=== PATIENT | female | born 1990 | race Caucasian/White ===

== ENCOUNTER 2016-09-28 05:43 | Emergency (ER) | payer MEDICAID ==
[2016-09-28 06:07] VITALS: RESP 16; TEMP 97.5
--- NOTE | 2016-09-28 06:20 | CPEKG ---
Heart Rate: 58 RR Interval: 1034 P-R Interval: 160 QRSD Interval: 96 QT Interval: 484 QTC Interval: 476 P [place]: 34 QRS [place]re: 84 T Wave [place]: 65 EKG Severity - BORDERLINE ECG - EKG Impression: SINUS RHYTHM EKG Impression: BORDERLINE PROLONGED QT INTERVAL Electronically Signed By: Fernando Horowitz 28-Sep-2016 07:29:42
--- NOTE | 2016-09-28 06:39 | EDPHY ---
H & P Stated Complaint: pt c/o L chest pressure and pain radiating into LUE post meth use 2 days ag HPI/ROS: Chief Complaint: Chest pain, anxiety HPI: 25-year-old woman presenting complaining of left upper chest lower shoulder pain and anxiety since about 1:00 a.m.. Patient states she started using meth Klonopin alcohol 2 days ago is been continuing using since then. Last used meth about 3 hours ago. After the using that time she started feeling little bit tired and lethargic. She states she has been having soreness in her left upper chest below her clavicle since 1:00 a.m.. She does have a history of depression but denies being suicidal at this time. She is [place] for safety. No substernal chest pain. No shortness of breath or pleuritic chest pain. She has full by [facility]. No nausea or vomiting. Not hit her head. Does not have a headache. States she is feeling quite anxious and is asking for medication for anxiety. ROS: 10 point Review of Systems is negative except as noted in the HPI. PMH: Depression Medications: Cymbalta Allergies: No known drug allergies Social History: No smoking, occasional heavy alcohol, meth and Klonopin Family History: non-contributory Physical Exam: Gen: Awake, Alert, No Distress HEENT: Nose: no rhinorrhea Eyes: PERRLA, EOMI Mouth: Moist mucosa Neck: Supple, no JVD Chest: nontender, lungs clear to auscultation Heart: S1, S2 normal, no murmur Abd: Soft, non-tender, no guarding Back: no CVA tenderness, no midline tenderness Ext: no edema, non-tender Skin: no rash Neuro: CN II-XII intact, Sensation grossly intact, Strength 5/5 in bilateral upper and lower extremities - Medical/Surgical History Hx Asthma: No Hx Chronic Respiratory Disease: No Hx Diabetes: No Hx Cardiac Disease: No Hx Renal Disease: No Hx Cirrhosis: No Hx Alcoholism: Yes Hx HIV/AIDS: No Hx Splenectomy or Spleen Trauma: No Other PMH: anxiety/depression, ptsd, etoh abuse - Social History Smoking Status: Never smoked Constitutional: Initial Vital Signs Temperature (C) 36.4 C 09/28/16 05:54 Heart Rate 84 09/28/16 05:54 Respiratory Rate 16 09/28/16 05:54 Blood Pressure 152/100 H 09/28/16 05:54 O2 Sat (%) 100 09/28/16 05:54 O2 Delivery Mode Room Air Allergies/Adverse Reactions: No Known Allergies Allergy (Unverified 09/28/16 05:57) Home Medications: Medication Instructions Recorded Samuelsudha 09/28/16 Medical Decision Making - Diagnostics EKG Interpretation: ECG time 6:19 a.m. sinus rhythm with a rate of 58, normal axis, normal intervals , no acute ST or T-wave changes. Impression: Normal ECG. ED Course/Re-evaluation: 25-year-old woman who is been bingeing on alcohol and meth for the last 3 days presenting with some chest pain since 1 o'clock this morning. Her vital signs are normal. Oxygenation is normal. Her ECG is normal. She has no evidence of acute ischemia or arrhythmia. Symptoms are consistent with her substance use and withdrawal. She has no significant alcohol withdrawal symptoms at this time. She is otherwise well-appearing. Will discharge with referral to [facility] for substance abuse treatment. Departure - Departure Disposition: Home, Routine, Self-Care Clinical Impression: Polysubstance abuse Condition: Good Instructions: Polysubstance Abuse (ED) Additional Instructions: Please seek help to decrease your alcohol and substance use. Return to the emergency depart for increasing chest pain, shortness of breath, fevers, chills, or any other concerns. Referrals: Luz Kaur MD [Non Staff Provider ()] - As per Instructions [facility] Detox 24 Hours [Outside] - As per Instructions
[2016-09-28] MEDS ORDERED: diphenhydrAMINE 25 MG CAP PO ONE (07:13)
[2016-09-28 07:21] VITALS: BP 133/82; PULSE 58; O2SAT 97
== END 2016-09-28 07:28 | disposition home or self-care (01) ==
DX: F19.10 Other psychoactive substance abuse, uncomplicated (principal)

== ENCOUNTER 2017-04-22 23:46 | Emergency (ER) | payer MEDICAID ==
[2017-04-22 23:59] VITALS: BP 125/67; PULSE 81; RESP 18; TEMP 98.2; O2SAT 98
--- NOTE | 2017-04-23 00:11 | EDPHY ---
H & P Stated Complaint: Poss UTI, left flank pain HPI/ROS: HPI CHIEF COMPLAINT: "I think I may have a UTI" HISTORY OF PRESENT ILLNESS: This patient very pleasant 18-year-old female she presents emergency room stating that she thinks she may have a urinary tract infection. She reports for the past 4 days she has had some intermittent dysuria. She states very mild 1/10 left flank pain. She denies fever. Denies vomiting. Denies chest pain shortness of breath. Denies abdominal pain. Of note she decided come the emergency room after having symptoms 4 days and she drove her friend here for a separate issue. She decided to check into the emergency room up front when her friend checked in for I separate issue. Past Medical History: Denies significant medical history Past Surgical History: Denies significant surgical history Social History: Denies daily use drugs alcohol tobacco. Family History: Noncontributory ROS REVIEW OF SYSTEMS: A comprehensive 10 point review of systems is otherwise negative aside from elements mentioned in the history of present illness. Exam Constitutional appears well nontoxic no acute distress triage nursing summary reviewed, vital signs reviewed, awake/alert. Eyes normal conjunctivae and sclera, EOMI, PERRLA. HENT normal inspection, atraumatic, moist mucus membranes, no epistaxis, neck supple/ no meningismus, no raccoon eyes. Respiratory clear to auscultation bilaterally, normal breath sounds, no respiratory distress, no wheezing. Cardiovascular rate normal, regular rhythm, no murmur, no edema, distal pulses normal. Gastrointestinal I cannot elicit any tenderness on exam soft, non-tender, no rebound, no guarding, normal bowel sounds, no distension, no pulsatile mass. Genitourinary I cannot elicit any CVA tenderness. Musculoskeletal no midline vertebral tenderness, full range of motion, no calf swelling, no tenderness of extremities, no meningismus, good pulses, neurovascularly intact. Skin pink, warm, & dry, no rash, skin atraumatic. Neurologic awake, alert and oriented x 3, AAOx3, moves all 4 extremities equally, motor intact, sensory intact, CN II-XII intact, normal cerebellar, normal vision, normal speech. Psychiatric normal mood/affect. Heme/Lymph/Immune no lymphadenopathy. Differential Diagnosis: Includes but is not limited to in a particular order cystitis, UTI, pyelonephritis early Medical Decision Making: Plan for this patient check UA. If urinalysis indicates UTI will send for culture, Keflex and peridium. Additionally will discussed return precautions with her. Re-evaluation: Urinalysis shows leukocyte Estrace. Will send for urine culture. Keflex and peridium 1st dose provided in the emergency room. Return precautions discussed with the patient 1218AM: She is comfortable going home. Understands return emergency room if develops worsening abdominal pain fever vomiting. Source: Patient - Personal History LMP (Females 10-55): 1-7 Days Ago Current Tetanus Diphtheria and Acellular Pertussis (TDAP): Yes Tetanus Vaccine Date: 2015 - Medical/Surgical History Hx Asthma: No Hx Chronic Respiratory Disease: No Hx Diabetes: No Hx Cardiac Disease: No Hx Renal Disease: No Hx Cirrhosis: No Hx Alcoholism: Yes Hx HIV/AIDS: No Hx Splenectomy or Spleen Trauma: No Other PMH: anxiety/depression, ptsd, etoh abuse - Social History Smoking Status: Never smoked Constitutional: Initial Vital Signs Temperature (C) 36.8 C 04/22/17 23:56 Heart Rate 81 04/22/17 23:56 Respiratory Rate 18 04/22/17 23:56 Blood Pressure 125/67 H 04/22/17 23:56 O2 Sat (%) 98 04/22/17 23:56 O2 Delivery Mode Room Air Allergies/Adverse Reactions: No Known Allergies Allergy (Unverified 09/28/16 05:57) Home Medications: Medication Instructions Recorded Cymbalta 09/28/16 Cephalexin [Keflex] 500 mg PO Q6H #28 cap 04/23/17 Phenazopyridine HCl [Pyridium] 200 mg PO TID #15 tab 04/23/17 Medical Decision Making - Data Points Laboratory Results: 04/23/17 00:04 Urine Color YELLOW Urine Appearance HAZY Urine pH 7.0 (5.0-7.5) Ur Specific [place] 1.012 (1.002-1.030) Urine Protein NEGATIVE (NEGATIVE) Urine Ketones NEGATIVE (NEGATIVE) Urine Blood NEGATIVE (NEGATIVE) Urine Nitrate NEGATIVE (NEGATIVE) Urine Bilirubin NEGATIVE (NEGATIVE) Urine Urobilinogen NEGATIVE EU EU (0.2-1.0) Ur Leukocyte Esterase TRACE H (NEGATIVE) Urine RBC 5-10 /hpf H /hpf (0-3) Urine WBC 5-10 /hpf H /hpf (0-3) Ur Epithelial Cells TRACE /lpf /lpf (NONE-1+) Amorphous Sediment PRESENT /hpf /hpf (NONE-1+) Urine Glucose NEGATIVE (NEGATIVE) Departure - Departure Disposition: Home, Routine, Self-Care Clinical Impression: Urinary tract infection Qualifiers: Urinary tract infection type: acute cystitis Hematuria presence: with hematuria Qualified Code(s): N30.01 - Acute cystitis with hematuria Condition: Good Instructions: Urinary Tract Infection in Women (ED) Additional Instructions: 1. Drink lots of fluids stay well-hydrated. 2. Antibiotics as prescribed. 3. Pyridium to help with bladder spasms and pain. 4. Return emergency room if develops worsening abdominal pain fever vomiting. Referrals: NONE *PRIMARY CARE P,. [Primary Care Provider] - As per Instructions Prescriptions: Cephalexin [Keflex] 500 mg PO Q6H #28 cap Phenazopyridine HCl [Pyridium] 200 mg PO TID #15 tab
[2017-04-23] MEDS ORDERED: CEPHALEXIN 500 MG CAP PO ONE (00:18)
[2017-04-23] MEDS ORDERED: PHENAZOPYRIDINE HCL 200 MG TAB PO ONE (00:18)
== END 2017-04-23 00:32 | disposition home or self-care (01) ==
DX: N30.01 Acute cystitis with hematuria (principal); B96.89 Other specified bacterial agents as the cause of diseases classified elsewhere